=== PATIENT | male | born 1945 | race Two or more races ===

== ENCOUNTER 2021-12-03 22:45 | Emergency (ER) | payer OTHER ==
[~2021-12-03] VITALS: Ht 177.8 cm; Wt 78.0 kg
[2021-12-03] MEDS ORDERED: SYNTHROID125 MCG PO (23:16)
[2021-12-03] MEDS ORDERED: GLUMETZA1000 MG PO (23:17)
[2021-12-03] MEDS ORDERED: GLIMEPIRIDE1 MG (23:17)
[2021-12-03] MEDS ORDERED: LIPITOR20 MG PO (23:17)
[2021-12-03] MEDS ORDERED: LEVOBUNOLOL HCL5 ML OP (23:17)
[2021-12-03] MEDS ORDERED: ACETAZOLAMIDE125 MG (23:17)
[2021-12-03] MEDS ORDERED: ALTACE5 MG PO (23:17)
[2021-12-03] MEDS ORDERED: TRELSTAR11.25 M1 IM (23:18)
[2021-12-03] MEDS ORDERED: ROCKLATAN 0.022.5 ML OP (23:18)
[2021-12-04] MEDS ORDERED: PEPCID40 MG PO (01:55)
== END 2021-12-04 02:06 ==
LOC: ER 22:45
DX: R06.02 Shortness of breath (principal); K21.9 Gastro-esophageal reflux disease without esophagitis; E11.9 Type 2 diabetes mellitus without complications; Z79.84 Long term (current) use of oral hypoglycemic drugs; I10 Essential (primary) hypertension; E03.9 Hypothyroidism, unspecified; Z91.013 Allergy to seafood